=== PATIENT | female | born 1935 | race Hispanic/Latino ===

== ENCOUNTER 2017-08-26 09:06 | Day surgery (SDC) | payer MEDICARE ==
[2017-08-26] MEDS ORDERED: Bupivacaine 0.5% Inj(30mL) ONE (12:07)
[2017-08-26] MEDS ORDERED: cefTRIAXone 1 gm 1 GM/100 ML BAG IVPB STA (13:11)
[2017-08-26] MEDS ORDERED: Propofol 10 mg/ml Inj (20 ML) ONE (13:12)
[2017-08-26] MEDS ORDERED: cefTRIAXone (Rocephin) 1 gm Inj ONE ×2 (13:12)
[2017-08-26] MEDS ORDERED: Bacitracin 500 Units/gm Oint Foilpak UD ONE (13:12)
[2017-08-26] MEDS ORDERED: ePHEDrine 50 mg/ml Inj ONE (13:46)
[2017-08-26] MEDS ORDERED: Morphine 2 mg/ml ISec IVP PRN (14:14)
[2017-08-26] MEDS ORDERED: Lactated Ringer's 500 ML IV SCH (14:15)
[2017-08-26 15:17] VITALS: BMI 21.9
[2017-08-26 15:19] VITALS: BP 121/57; PULSE 65; RESP 20; TEMP 97.2; O2SAT 98
--- NOTE | 2017-09-01 16:48 | OP ---
PROCEDURE DATE: 08/26/2017 PREOPERATIVE DIAGNOSIS: Large urethral prolapse. POSTOPERATIVE DIAGNOSIS: Large urethral prolapse. PROCEDURE: Excision of large urethral prolapse with plastic reconstruction of a urethral meatus. SURGEON: Richard Lentz MD ANESTHESIA: LMA. DESCRIPTION OF PROCEDURE: After adequate LMA anesthesia was given, the patient was placed lithotomy, prepped and draped in the usual manner. The labia majora was sewn to the outer thigh on either side to expose the vaginal introitus. This was done with 2-0 silk. A large urethral prolapse was seen extending almost from 3 o'clock to 9 o'clock. Stay sutures of 4-0 chromic were placed at 3 o'clock and 9 o'clock in the urethral meatus. A 16-Upper Sorbian Zuniga catheter was also inserted into the bladder and inflated, with a drainage of clear isabelle urine. The urethral prolapse was excised in its entirety with plastic scissors. As it was excised, I was placing interrupted 4-0 chromic sutures to reapproximate the urethral mucosa with the skin of the meatus. The entire prolapse was excised. Multiple stitches were put with 4-0 chromic to make sure there was good approximation with the urethral mucosa and the meatus was widely patent. There was no evidence of any bleeding. The stay sutures were excised. Bacitracin ointment was applied to the meatus after the Zuniga catheter was removed. The patient was awakened and brought to the recovery room in good condition. Sponge and instrument counts were correct x2. Richard Lentz MD
== END 2017-08-26 15:55 | disposition home or self-care (01) ==
LOC: SDS 09:06
PROVIDERS: ATTEND Urology
DX: N81.0 Urethrocele (principal); N36.2 Urethral caruncle
CPT/HCPCS: 57230; 88305; J0696; J2270; J2405; J2704; J3010; J7120 ×2

== ENCOUNTER 2018-03-16 11:53 | Emergency (ER) | payer OTHER, MEDICARE ==
[2018-03-16 11:53] VITALS: BMI 21.5
[2018-03-16] MEDS ORDERED: TDAP Vaccine 0.5 mL Syr IM ONE (12:02)
[2018-03-16 12:06] VITALS: RESP 18; TEMP 97.4
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
--- NOTE | 2018-03-16 13:19 | RAD ---
PROCEDURE: Left Knee Radiographs. HISTORY: Pain. COMPARISON: 07/11/2017 FINDINGS: BONES: There is a plate and multiple transverse screws in the distal left femur. JOINTS: Mild to moderate degenerative changes with narrowing of the lateral joint space. JOINT EFFUSION: None. OTHER FINDINGS: None. IMPRESSION: Degenerative changes in the lateral compartment
[2018-03-16 15:30] VITALS: BP 139/70; PULSE 77; O2SAT 99
== END 2018-03-16 15:34 | disposition home or self-care (01) ==
LOC: ED 11:53
DX: S01.81XA Laceration without foreign body of other part of head, initial encounter (principal); V03.10XA Pedestrian on foot injured in collision with car, pick-up truck or van in traffic accident, initial encounter; Y92.410 Unspecified street and highway as the place of occurrence of the external cause; M25.562 Pain in left knee; Z23 Encounter for immunization

== ENCOUNTER 2018-03-23 09:36 | Emergency (ER) | payer OTHER, MEDICARE ==
[2018-03-23 09:37] VITALS: BMI 21.5
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
[2018-03-23 10:31] VITALS: RESP 18
[2018-03-23 11:09] VITALS: BP 118/62; PULSE 80; TEMP 98; O2SAT 98
== END 2018-03-23 11:08 | disposition home or self-care (01) ==
LOC: ED 09:36
DX: S01.01XD Laceration without foreign body of scalp, subsequent encounter (principal)